=== PATIENT | male | born 1960 | race Caucasian/White ===

== ENCOUNTER 2016-04-04 09:17 | Outpatient (RCR) | payer OTHER | END 2016-04-10 | LOC: M OUTALCOH 09:17 | PROVIDERS: ATTEND Psychiatry & Neurology Psychiatry | DX: Z13.9 Encounter for screening, unspecified (principal); F10.20 Alcohol dependence, uncomplicated ==

== ENCOUNTER 2016-04-24 08:00 | Outpatient (RCR) | payer OTHER | END 2016-05-08 | LOC: M OUTALCOH 08:00 | PROVIDERS: ATTEND Psychiatry & Neurology Psychiatry | DX: F10.20 Alcohol dependence, uncomplicated (principal) ==

== ENCOUNTER 2016-06-05 08:00 | Outpatient (RCR) | payer OTHER | END 2016-06-08 | LOC: M OUTALCOH 08:00 | PROVIDERS: ATTEND Psychiatry & Neurology Psychiatry | DX: Z13.9 Encounter for screening, unspecified (principal); F10.20 Alcohol dependence, uncomplicated ==

== ENCOUNTER 2016-07-03 08:00 | Outpatient (RCR) | payer OTHER | END 2016-07-08 | LOC: M OUTALCOH 08:00 | PROVIDERS: ATTEND Psychiatry & Neurology Psychiatry | DX: F10.20 Alcohol dependence, uncomplicated (principal) ==

== ENCOUNTER 2016-08-07 08:30 | Outpatient (RCR) | payer OTHER | END 2016-08-08 | LOC: M OUTALCOH 08:30 | PROVIDERS: ATTEND Psychiatry & Neurology Psychiatry | DX: F10.20 Alcohol dependence, uncomplicated (principal) ==

== ENCOUNTER 2016-09-04 08:00 | Outpatient (RCR) | payer OTHER | END 2016-09-07 | LOC: M OUTALCOH 08:00 | PROVIDERS: ATTEND Psychiatry & Neurology Psychiatry | DX: F10.20 Alcohol dependence, uncomplicated (principal) ==

== ENCOUNTER → 2016-09-18 | Outpatient (REF) | payer OTHER ==
[2016-09-18 11:29] LABS: MEAN CORPUSCULAR HEMOGLOBIN 31.4 pg (27.0-33.0); MEAN CORPUSCULAR VOLUME 89.6 fl (80.0-96.0); RED CELL DISTRIBUTION WIDTH 13.1 % (11.5-14.5); WHITE BLOOD COUNT 4.6 K/mm3 (4.0-10.0)
[2016-09-18 12:03] LABS: ALBUMIN/GLOBULIN RATIO 1.25 (1.00-1.93); ALKALINE PHOSPHATASE 85 U/L (45-117); ALT/SGPT 25 U/L (12-78); ANION GAP 7 MEQ/L (8-16); AST/SGOT 15 U/L (15-37); BILIRUBIN,TOTAL 0.5 MG/DL (0.2-1.0); BLOOD UREA NITROGEN 13 MG/DL (7-18); CALCIUM LEVEL 8.9 MG/DL (8.5-10.1); CARBON DIOXIDE LEVEL 27 MEQ/L (21-32); CHLORIDE LEVEL 108 MEQ/L (98-107); CREATININE FOR GFR 1.19 MG/DL (0.70-1.30); GLOMERULAR FILTRATION RATE > 60.0 (>56); GLUCOSE, FASTING 99 MG/DL (70-105); POTASSIUM SERUM 4.2 MEQ/L (3.5-5.1); SODIUM LEVEL 142 MEQ/L (136-145); TOTAL PROTEIN 7.2 GM/DL (6.4-8.2)
[2016-09-18 12:58] LABS: VITAMIN B12 LEVEL 485 PG/ML (247-911)
== END ==
LOC: M SFHCPLAZ 08:55
PROVIDERS: ATTEND Nurse Practitioner Adult Health
DX: K21.9 Gastro-esophageal reflux disease without esophagitis (principal); Z12.5 Encounter for screening for malignant neoplasm of prostate; Z87.898 Personal history of other specified conditions
CPT/HCPCS: 36415; 80053; 82607; 84443; 85027; G0103

== ENCOUNTER 2016-10-04 14:00 | Outpatient (RCR) | payer OTHER | END 2016-10-08 | LOC: M OUTALCOH 14:00 | PROVIDERS: ATTEND Psychiatry & Neurology Psychiatry | DX: F10.20 Alcohol dependence, uncomplicated (principal) ==

== ENCOUNTER 2016-11-07 08:45 | Outpatient (RCR) | payer OTHER | END 2016-11-08 | LOC: M OUTALCOH 08:45 | PROVIDERS: ATTEND Psychiatry & Neurology Psychiatry | DX: F10.20 Alcohol dependence, uncomplicated (principal) ==

== ENCOUNTER 2016-12-07 08:00 | Outpatient (RCR) | payer OTHER | END 2016-12-08 | LOC: M OUTALCOH 08:00 | PROVIDERS: ATTEND Psychiatry & Neurology Psychiatry | DX: F10.20 Alcohol dependence, uncomplicated (principal) ==

== ENCOUNTER 2017-02-06 15:32 | Outpatient (RCR) | payer OTHER ==
[2017-02-15] MEDS ORDERED: OMEP20CA3 PO (14:31)
[2017-02-15] MEDS ORDERED: ACET-683 PO (14:31)
== END 2017-02-07 ==
LOC: M OUTALCOH 15:32
PROVIDERS: ATTEND Psychiatry & Neurology Psychiatry
DX: F10.20 Alcohol dependence, uncomplicated (principal)

== ENCOUNTER 2017-02-13 15:00 | Outpatient (RCR) | payer OTHER | END 2017-03-10 | LOC: M OUTALCOH 02-20 16:00 | DX: F10.20 Alcohol dependence, uncomplicated (principal) ==

== ENCOUNTER 2017-02-19 10:51 | Day surgery (SDC) | payer OTHER ==
[~2017-02-19] VITALS: Ht 177.8 cm; Wt 98.0 kg
[~2017-02-19 10:51] MED LIST: ACET-683 PO; OMEP20CA3 PO
[2017-02-19] MEDS ORDERED: NS 1,000 ML IV SCH (12:15)
[2017-02-19] MEDS ORDERED: PROPOFOL 200 MG/20 ML VIAL As Ordered ONE ×2 (12:40→12:42)
[2017-02-19] MEDS ORDERED: LIDOCAINE 2% INJ 100 MG/5 ML SDV (FOR ANES.) As Ordered ONE (12:40)
--- NOTE | 2017-02-19 12:44 | ROOR ---
Patient Name: James Ponce Procedure Date: 02/19/2017 12:29 PM Date of : 1960 Age: 56 Room: [facility] Gender: Male Note Status: Finalized Procedure: Upper GI endoscopy Indications: Heartburn Providers: Jerardo SCOTT MD Referring MD: Rashad Matute MD Requesting Provider: Medicines: Monitored Anesthesia Care Complications: No immediate complications. Procedure: Pre-Anesthesia Assessment: - The heart rate, respiratory rate, oxygen saturations, blood pressure, adequacy of pulmonary ventilation, and response to care were monitored throughout the procedure. The Endoscope was introduced through the mouth, and advanced to the second part of duodenum. The upper GI endoscopy was accomplished without difficulty. The patient tolerated the procedure well. Findings: The esophagus was normal. The stomach was normal. The examined duodenum was normal. Impression: - Normal esophagus. - Normal stomach. - Normal examined duodenum. - No specimens collected. Recommendation: - Observe patient's clinical course. - Follow an antireflux regimen. Jerardo Scott MD Jerardo SCOTT MD 02/19/2017 12:43:58 PM This report has been signed electronically. Number of Addenda: 0 Note Initiated On: 02/19/2017 12:29 PM Estimated Blood Loss: Estimated blood loss: none.
--- NOTE | 2017-02-19 13:16 | ROOR ---
Patient Name: James Ponce Procedure Date: 02/19/2017 12:30 PM Date of : 1960 Age: 56 Room: [facility] Gender: Male Note Status: Finalized Procedure: Colonoscopy Indications: Hematochezia, Rectal bleeding Providers: Jerardo SCOTT MD Referring MD: Rashad Matute MD Requesting Provider: Medicines: Monitored Anesthesia Care Complications: No immediate complications. Procedure: Pre-Anesthesia Assessment: - The heart rate, respiratory rate, oxygen saturations, blood pressure, adequacy of pulmonary ventilation, and response to care were monitored throughout the procedure. The Colonoscope was introduced through the anus and advanced to 3 cm into the ileum. The colonoscopy was performed without difficulty. The patient tolerated the procedure well. The quality of the bowel preparation was good. Findings: The digital rectal exam findings include palpable rectal mass. A frond-like/villous non-obstructing large mass was found in the distal rectum. The mass measured four cm in length. This was biopsied with a cold forceps for histology. The exam was otherwise normal throughout the examined colon. The terminal ileum appeared normal. Impression: - Palpable rectal mass found on digital rectal exam. - 3 cm soft villous mass in the distal rectum (within 1cm of dentate line/hemorrhoidal vessels). Biopsied to r/o malignancy. (I did not attempt to remove this lesion.) - The colon and examined portion of the ileum are otherwise normal. Recommendation: - Await pathology results. - Refer to a colo-rectal surgeon at appointment to be scheduled. Jerardo Scott MD Jerardo SCOTT MD 02/19/2017 1:16:20 PM This report has been signed electronically. Number of Addenda: 0 Note Initiated On: 02/19/2017 12:30 PM Estimated Blood Loss: Estimated blood loss: none.
[2017-02-19 13:53] VITALS: BP 140/80
== END 2017-02-19 14:10 | disposition home or self-care (01) ==
LOC: M OPP 10:51
PROVIDERS: ATTEND Internal Medicine Gastroenterology
DX: C18.9 Malignant neoplasm of colon, unspecified (principal); K62.89 Other specified diseases of anus and rectum; K62.5 Hemorrhage of anus and rectum; R12 Heartburn; K21.9 Gastro-esophageal reflux disease without esophagitis; Z79.899 Other long term (current) drug therapy; Z87.891 Personal history of nicotine dependence

== ENCOUNTER → 2017-03-08 | Outpatient (REF) | payer OTHER ==
[2017-03-08 12:49] LABS: MEAN CORPUSCULAR HEMOGLOBIN 29.8 pg (27.0-33.0); MEAN CORPUSCULAR HGB CONC 34.5 g/dl (32.0-36.5); MEAN CORPUSCULAR VOLUME 86.4 fl (80.0-96.0); PLATELET COUNT, AUTOMATED 187 10^3/uL (150-450); RED CELL DISTRIBUTION WIDTH 13.2 % (11.5-14.5); WHITE BLOOD COUNT 6.4 10^3/uL (4.0-10.0)
[2017-03-08 13:28] LABS: ALBUMIN 3.8 GM/DL (3.2-5.2); ALBUMIN/GLOBULIN RATIO 1.09 (1.00-1.93); ALKALINE PHOSPHATASE 86 U/L (45-117); ALT/SGPT 32 U/L (12-78); ANION GAP 8 MEQ/L (8-16); AST/SGOT 22 U/L (7-37); BILIRUBIN,TOTAL 0.5 MG/DL (0.2-1.0); BLOOD UREA NITROGEN 16 MG/DL (7-18); CALCIUM LEVEL 9.3 MG/DL (8.5-10.1); CARBON DIOXIDE LEVEL 27 MEQ/L (21-32); CHLORIDE LEVEL 105 MEQ/L (98-107); GLOMERULAR FILTRATION RATE > 60.0 (>56); GLUCOSE, FASTING 93 MG/DL (70-105); POTASSIUM SERUM 4.5 MEQ/L (3.5-5.1); SODIUM LEVEL 140 MEQ/L (136-145); TOTAL PROTEIN 7.3 GM/DL (6.4-8.2)
== END ==
LOC: M SFHCPLAZ 11:12
DX: C20 Malignant neoplasm of rectum (principal)
CPT/HCPCS: 36415

== ENCOUNTER → 2017-03-08 | Outpatient (REF) | payer OTHER ==
[2017-03-08 13:01] LABS: BASO # 0.1 10^3/uL (0.0-0.2); BASO % 0.8 % (0.0-1.0); EOS # 0.1 10^3/uL (0.0-0.50); EOS % 2.2 % (0.0-3.0); IMMATURE GRANULOCYTE % 0.2 % (0-0); LYMPH # 1.8 10^3/uL (1.5-4.5); LYMPH % 27.8 % (24.0-44.0); MEAN CORPUSCULAR HEMOGLOBIN 29.9 pg (27.0-33.0); MEAN CORPUSCULAR HGB CONC 34.7 g/dl (32.0-36.5); MEAN CORPUSCULAR VOLUME 86.1 fl (80.0-96.0); MONO # 0.6 10^3/uL (0.0-0.8); MONO % 9.2 % (0.0-5.0); NEUTROPHILS # 3.8 10^3/uL (1.8-7.7); NEUTROPHILS % 59.8 % (36.0-66.0); PLATELET COUNT, AUTOMATED 185 10^3/uL (150-450); RED CELL DISTRIBUTION WIDTH 13.2 % (11.5-14.5); WHITE BLOOD COUNT 6.4 10^3/uL (4.0-10.0)
[2017-03-08 13:24] LABS: CHLORIDE LEVEL 105 MEQ/L (98-107); POTASSIUM SERUM 4.5 MEQ/L (3.5-5.1); SODIUM LEVEL 141 MEQ/L (136-145)
[2017-03-08 13:47] LABS: ALBUMIN 3.8 GM/DL (3.2-5.2); ALBUMIN/GLOBULIN RATIO 1.12 (1.00-1.93); ALKALINE PHOSPHATASE 86 U/L (45-117); ALT/SGPT 33 U/L (12-78); ANION GAP 11 MEQ/L (8-16); AST/SGOT 20 U/L (7-37); BILIRUBIN,TOTAL 0.4 MG/DL (0.2-1.0); BLOOD UREA NITROGEN 17 MG/DL (7-18); CALCIUM LEVEL 9.1 MG/DL (8.5-10.1); CARBON DIOXIDE LEVEL 25 MEQ/L (21-32); GLOMERULAR FILTRATION RATE > 60.0 (>56); GLUCOSE, FASTING 91 MG/DL (70-105); TOTAL PROTEIN 7.2 GM/DL (6.4-8.2)
== END ==
LOC: M LABDRAWP 12:55
DX: C20 Malignant neoplasm of rectum (principal)

== ENCOUNTER 2017-03-29 11:08 | Outpatient (RCR) | payer OTHER | END 2017-04-10 | LOC: M OUTALCOH 11:08 | DX: F10.20 Alcohol dependence, uncomplicated (principal) ==

== ENCOUNTER → 2017-04-02 | Outpatient (CLI) | payer OTHER | LOC: M ONCR 09:11 | DX: C18.9 Malignant neoplasm of colon, unspecified (principal) | CPT/HCPCS: 99204 ==

== ENCOUNTER 2017-04-09 11:02 | Outpatient (RCR) | payer OTHER | END 2017-04-10 | LOC: M ONCR 11:02 | DX: C18.9 Malignant neoplasm of colon, unspecified (principal) | CPT/HCPCS: 77290 ==

== ENCOUNTER → 2017-04-09 | Outpatient (CLI) | payer OTHER ==
[2017-04-09 11:29] LABS: INR 1.04; PROTHROMBIN TIME 13.7 SECONDS (12.4-14.5)
[2017-04-09 11:30] LABS: INR 1.05; PARTIAL THROMBOPLASTIN TIME 29.7 SECONDS (26.8-37.9); PROTHROMBIN TIME 13.8 SECONDS (12.4-14.5)
== END ==
LOC: M RAD 10:32
DX: C18.9 Malignant neoplasm of colon, unspecified (principal)
CPT/HCPCS: 85610

== ENCOUNTER → 2017-04-10 | Outpatient (CLI) | payer OTHER ==
[~2017-04-10] MED LIST changes: -ACET-683 PO; +LIDOCAINE 2% MDV 20 ML VIAL As Ordered; -OMEP20CA3 PO
== END | disposition home or self-care (01) ==
LOC: M IRPRO 13:25
DX: C20 Malignant neoplasm of rectum (principal)
CPT/HCPCS: 36561

== ENCOUNTER → 2017-04-12 | Outpatient (CLI) | payer OTHER ==
[~2017-04-12] MED LIST changes: +LIDOCAINE 1% MDV 20ML VIAL As Ordered; -LIDOCAINE 2% MDV 20 ML VIAL As Ordered
== END ==
LOC: M RADPRO 09:04
DX: R22.2 Localized swelling, mass and lump, trunk (principal); Z79.899 Other long term (current) drug therapy; Z85.038 Personal history of other malignant neoplasm of large intestine
CPT/HCPCS: 62267

== ENCOUNTER 2017-04-15 12:29 | Outpatient (RCR) | payer OTHER | END 2017-05-08 | LOC: M ONCR 12:29 | DX: C20 Malignant neoplasm of rectum (principal) | CPT/HCPCS: 77307 ==

== ENCOUNTER 2017-05-02 10:13 | Outpatient (RCR) | payer OTHER | END 2017-05-08 | LOC: M OUTALCOH 10:13 | DX: F10.20 Alcohol dependence, uncomplicated (principal) ==

== ENCOUNTER 2017-05-09 11:43 | Outpatient (RCR) | payer OTHER | END 2017-06-08 | LOC: M ONCR 11:43 | DX: C20 Malignant neoplasm of rectum (principal) | CPT/HCPCS: 77336 ==

== ENCOUNTER → 2017-12-09 | Outpatient (REF) | payer OTHER ==
[2017-12-09 14:07] LABS: APPEARANCE, URINE TURBID (CLEAR); BACTERIA, URINE AUTO 3+ (NEGATIVE); BILIRUBIN, URINE AUTO NEGATIVE (NEGATIVE); BLOOD, URINE BLOOD 2+ (NEGATIVE); COLOR, URINE YELLOW (YELLOW); GLUCOSE, URINE (UA) AUTO NEGATIVE (NEGATIVE); KETONE, URINE AUTO NEGATIVE (NEGATIVE); LEUKOCYTE ESTERASE, URINE AUTO 3+ (NEGATIVE); MUCUS, URINE SMALL (NEGATIVE); NITRITE, URINE AUTO NEGATIVE (NEGATIVE); PROTEIN, URINE AUTO 2+ mg/dL (NEGATIVE); RBC, URINE AUTO 34 /HPF (0-3); SQUAMOUS EPITHELIAL CELL UR AU 1 /HPF (0-6); UROBILINOGEN, URINE AUTO 0.2 mg/dL (0.0-2.0); WBC, URINE AUTO TNTC /HPF (0-3)
== END ==
LOC: M SHH 13:41
DX: N39.9 Disorder of urinary system, unspecified (principal)
CPT/HCPCS: 81001

== ENCOUNTER → 2017-12-25 | Outpatient (REF) | payer OTHER ==
[2017-12-25 16:57] LABS: APPEARANCE, URINE TURBID (CLEAR); BACTERIA, URINE AUTO 2+ (NEGATIVE); BILIRUBIN, URINE AUTO NEGATIVE (NEGATIVE); BLOOD, URINE BLOOD 2+ (NEGATIVE); COLOR, URINE YELLOW (YELLOW); GLUCOSE, URINE (UA) AUTO NEGATIVE (NEGATIVE); KETONE, URINE AUTO NEGATIVE (NEGATIVE); LEUKOCYTE ESTERASE, URINE AUTO 3+ (NEGATIVE); MUCUS, URINE SMALL (NEGATIVE); NITRITE, URINE AUTO POSITIVE (NEGATIVE); PROTEIN, URINE AUTO 1+ mg/dL (NEGATIVE); RBC, URINE AUTO 45 /HPF (0-3); SPECIFIC GRAVITY URINE AUTO 1.009 (1.002-1.035); SQUAMOUS EPITHELIAL CELL UR AU 0 /HPF (0-6); UROBILINOGEN, URINE AUTO 0.2 mg/dL (0.0-2.0); WBC, URINE AUTO TNTC /HPF (0-3)
== END ==
LOC: M SHH 15:35
DX: C20 Malignant neoplasm of rectum (principal); T81.30XD Disruption of wound, unspecified, subsequent encounter
CPT/HCPCS: 81001

== ENCOUNTER → 2018-01-15 | Outpatient (CLI) | payer OTHER | LOC: M ONCR 12:57 | DX: C20 Malignant neoplasm of rectum (principal) | CPT/HCPCS: 99211 ==

== ENCOUNTER → 2018-09-03 | Outpatient (CLI) | payer OTHER ==
[~2018-09-03] MED LIST changes: +ACET-683 PO; +ALEV220C2 PO; +ALPR0.5T3 PO; +DIPH12.527 PO; +DOK100TA; +ENOX40IN3; +FLOM0.4C39; +GASTROGRAFIN SOLUTION 30ML (Q9963) As Ordered ONE; +ISOVUE-370 76% 100ML VIAL (Q9967) As Ordered ONE; -LIDOCAINE 1% MDV 20ML VIAL As Ordered; +NAPR220C14 PO; +OMEP20CA3 PO; +ONDA8TAB7 PO; +ONDA8TAB8 PO; +OXYC10TA12 PO; +PROC10TA4 PO; +SENN-85 PO; +SILD50TA GT; +SILV40CR EXT; +TRAM50TA2; +XELO150T PO; +XELO1TAB PO
--- NOTE | 2018-09-03 14:33 | REP ---
Clinical: Rectal cancer for restaging. Technique: Axial contrast enhanced images from the thoracic inlet to the upper abdomen with coronal and sagittal re-formations using 100 ml Isovue of 70 intravenous contrast material. Comparison: 03/01/2017 Findings: The bilateral lung mata are well-aerated and essentially clear. No focal consolidation, pulmonary parenchymal nodule or mass lesion is appreciated. No pleural effusion. No pneumothorax. Tracheobronchial tree is patent. No significant adenopathy. Mediastinum demonstrates relatively normal thoracic aorta, pulmonary vasculature, and heart/pericardium. Surrounding osseous structures are intact and normal. [id number]-I-Vnxf identified with tip in the SVC. There is a 3.3 cm mass in the left paraspinal region adjacent to the T7 neural foramen which is unchanged from prior examination. No further mass lesions are identified. Impression: 1. No acute mediastinal or pleuroparenchymal process. 2. No evidence for metastatic disease, consolidation, or effusion. 3. Stable soft tissue mass arising from the left T7 neural foramen region. Electronically Signed by James Garcia MD 09/03/2018 02:24 P
--- NOTE | 2018-09-03 14:38 | REP ---
Clinical: Rectal carcinoma for restaging. Technique: Axial contrast enhanced images from the lung bases to the pubic symphysis using oral (per protocol) and 100 ml Isovue 370 intravenous contrast material with coronal and sagittal re-formations. Comparison: 10/10/2017. Findings: Liver, spleen, atrophic pancreas, bilateral adrenal glands and kidneys are essentially normal/stable. Collapsed gallbladder with small gallstones noted. Evaluation of the enteric system demonstrates prior left hemicolectomy with ostomy via the left anterior abdominal wall and no evidence for bowel obstruction. Normal terminal ileum and appendix are identified in the right lower quadrant. Pelvis demonstrates normal bladder and age appropriate prostate/seminal vesicles. No abnormal fluid, adenopathy, or obvious mass/recurrence is appreciated within the pelvis and ischiorectal fossa. No ascites. No free air. No adenopathy. Abdominal aorta without aneurysm or dissection. Musculoskeletal structures demonstrate degenerative changes without focal osseous abnormality including chronic L5 spondylolysis without significant spondylolisthesis. Impression: 1. Evidence for prior left hemicolectomy to the level of the rectum with ostomy via the left anterior abdominal wall. No evidence for bowel obstruction, peristomal hernia or perforation. 2. No obvious metastatic disease or recurrence appreciated. No adenopathy. No ascites. 3. Cholelithiasis. Electronically Signed by James Garcia MD 09/03/2018 02:30 P
== END ==
LOC: M RAD 11:52
PROVIDERS: ATTEND Internal Medicine Medical Oncology
DX: K80.19 Calculus of gallbladder with other cholecystitis with obstruction (principal); M79.9 Soft tissue disorder, unspecified; C20 Malignant neoplasm of rectum; Z90.49 Acquired absence of other specified parts of digestive tract
CPT/HCPCS: 71260; 74177; Q9963; Q9967

== ENCOUNTER → 2018-09-30 | Outpatient (CLI) | payer OTHER ==
[~2018-09-30] MED LIST changes: -GASTROGRAFIN SOLUTION 30ML (Q9963) As Ordered ONE; -ISOVUE-370 76% 100ML VIAL (Q9967) As Ordered ONE; -OMEP20CA3 PO; +OMEP20CA4 PO
--- NOTE | 2018-09-30 12:49 | REP ---
Whole body PET CT scan for restaging of rectal carcinoma: Comparison is the CT of the abdomen and pelvis dated 09/03/2018. Whole body PET CT scanning is performed from skull base to the upper thighs. Neck and supraclavicular areas: There is artifactual uptake in the sublingual glands. There is no other uptake in the neck or supraclavicular areas. Chest: There are no hypermetabolic foci. Abdomen, pelvis and upper thighs: There is a hypermetabolic focus at the colostomy with a standard uptake value of 4.7. This may be postsurgical. There are no hepatic foci. No other hypermetabolic foci are identified. Impression: There is a hypermetabolic focus at the colostomy with a standard uptake value of 4.7. This may be postsurgical. No other hypermetabolic foci are identified. The study is performed with 4.49 mCi of F 18 FDG. Electronically Signed by Diogenes Christianson MD 09/30/2018 12:40 P
== END ==
LOC: M PLARAD 07:42
PROVIDERS: ATTEND Internal Medicine Medical Oncology
DX: C20 Malignant neoplasm of rectum (principal); Z92.21 Personal history of antineoplastic chemotherapy
CPT/HCPCS: 78815; A9552

== ENCOUNTER 2018-12-04 10:13 | Day surgery (SDC) | payer OTHER ==
[~2018-12-04] VITALS: Ht 172.7 cm; Wt 97.5 kg
[~2018-12-04 10:13] MED LIST changes: +NEUR300C PO
[2018-12-04] MEDS: NS 1,000 ML IV ONE (10:22)
[2018-12-04] MEDS ORDERED: PROPOFOL 500 MG/50 ML VIAL As Ordered ONE (10:53)
[2018-12-04] MEDS ORDERED: LIDOCAINE 2% INJ 100 MG/5 ML SDV (FOR ANES.) As Ordered ONE (10:53)
--- NOTE | 2018-12-04 11:18 | ROOR ---
Patient Name: James Ponce Procedure Date: 12/04/2018 10:49 AM Date of : 1960 Age: 58 Room: [facility] Gender: Male Note Status: Finalized Procedure: Colonoscopy Indications: Abnormal PET scan of the GI tract Providers: Valentin West Jr, MD Referring MD: Neeta MO NP Requesting Provider: Medicines: Propofol per Anesthesia Complications: No immediate complications. Procedure: Pre-Anesthesia Assessment: - Prior to the procedure, a History and Physical was performed, and patient medications and allergies were reviewed. The patient is competent. The risks and benefits of the procedure and the sedation options and risks were discussed with the patient. All questions were answered and informed consent was obtained. Patient identification and proposed procedure were verified by the physician and the nurse in the pre-procedure area and in the procedure room. Mental Status Examination: alert and oriented. Airway Examination: normal oropharyngeal airway and neck mobility. Respiratory Examination: clear to auscultation. CV Examination: normal. ASA Grade Assessment: II - A patient with mild systemic disease. After reviewing the risks and benefits, the patient was deemed in satisfactory condition to undergo the procedure. The anesthesia plan was to use moderate sedation / analgesia (conscious sedation). Immediately prior to administration of medications, the patient was re-assessed for adequacy to receive sedatives. The heart rate, respiratory rate, oxygen saturations, blood pressure, adequacy of pulmonary ventilation, and response to care were monitored throughout the procedure. The physical status of the patient was re-assessed after the procedure. The Colonoscope was introduced through the anus and advanced to the cecum, identified by appendiceal orifice and ileocecal valve. The colonoscopy was performed without difficulty. The patient tolerated the procedure well. The quality of the bowel preparation was adequate. Findings: The sigmoid colon, descending colon, transverse colon, ascending colon, cecum, appendiceal orifice, ileocecal valve and surgical stoma appeared normal. A diminutive polyp was found in the hepatic flexure. The polyp was removed with a cold snare. Resection and retrieval were complete. Impression: - The sigmoid colon, descending colon, transverse colon, ascending colon, cecum, appendiceal orifice, ileocecal valve and surgical stoma are normal. - One diminutive polyp at the hepatic flexure, removed with a cold snare. Resected and retrieved. Recommendation: - Repeat colonoscopy in 3 - 5 years for surveillance. Valentin West MD Valentin West Jr, MD 12/04/2018 11:18:39 AM Electronically signed by Valentin West Jr, MD Number of Addenda: 0 Note Initiated On: 12/04/2018 10:49 AM Estimated Blood Loss: Estimated blood loss: none.
[2018-12-04 11:30] VITALS: BP 179/84
== END 2018-12-04 11:55 | disposition home or self-care (01) ==
LOC: M OPP 10:13
PROVIDERS: ATTEND Surgery
DX: D12.3 Benign neoplasm of transverse colon (principal); R93.3 Abnormal findings on diagnostic imaging of other parts of digestive tract; Z79.899 Other long term (current) drug therapy; Z91.048 Other nonmedicinal substance allergy status; Z85.048 Personal history of other malignant neoplasm of rectum, rectosigmoid junction, and anus; Z92.3 Personal history of irradiation; Z92.21 Personal history of antineoplastic chemotherapy; Z87.891 Personal history of nicotine dependence

== ENCOUNTER 2019-02-11 13:42 | Emergency (ER) | payer OTHER ==
[~2019-02-11] VITALS: Ht 177.8 cm; Wt 100.0 kg
[~2019-02-11 13:42] MED LIST changes: +OMEP-172 PO; -OMEP20CA4 PO
[2019-02-11] MEDS ORDERED: ADACEL/BOOSTRIX VACCINE (DIPHTH/PERTUSS/ACELL/TETANUS)0.5ML SYR (90715) IM ONE (14:15)
[2019-02-11 14:23] VITALS: BP 142/65
--- NOTE | 2019-02-11 14:28 | REP ---
Clinical: Laceration. Technique: AP, lateral, bilateral oblique views of the left third digit. Findings: Soft tissue injury and laceration noted overlying the distal interphalangeal joint and distal phalanx. No foreign body. No acute fracture or dislocation. Impression: Soft tissue injury. No foreign body. Electronically Signed by James Garcia MD 02/11/2019 02:19 P
[2019-02-11] MEDS ORDERED: LIDOCAINE 1% MDV 20ML VIAL INFIL ONE (14:45)
== END 2019-02-11 15:09 | disposition home or self-care (01) ==
LOC: M ED 13:42
DX: S61.213A Laceration without foreign body of left middle finger without damage to nail, initial encounter (principal); W01.190A Fall on same level from slipping, tripping and stumbling with subsequent striking against furniture, initial encounter; Y92.89 Other specified places as the place of occurrence of the external cause; Y93.89 Activity, other specified; Y99.0 Civilian activity done for income or pay; Z91.048 Other nonmedicinal substance allergy status; Z79.899 Other long term (current) drug therapy

== ENCOUNTER → 2019-03-05 | Outpatient (CLI) | payer OTHER ==
[~2019-03-05] MED LIST changes: +GASTROGRAFIN SOLUTION 30ML (Q9963) As Ordered ONE
--- NOTE | 2019-03-05 12:57 | REP ---
Clinical: Rectal carcinoma. Restaging. Technique: At axial contrast enhanced images from the thoracic inlet to the upper abdomen with coronal and sagittal re-formations using 100 ml Isovue 370 intravenous contrast material. Comparison: 09/03/2018, at 03/01/2017 . Findings: 3.4 cm mass along the left paraspinous space at the T7 level is relatively stable through 03/01/2017. The bilateral lung mata are well-aerated and essentially clear. No focal pulmonary parenchymal consolidation, nodule or mass lesion is otherwise appreciated. No effusion. No pneumothorax. Tracheobronchial tree is patent. No obvious axillary, hilar, or mediastinal adenopathy. Thoracic aorta and pulmonary vasculature grossly normal. No cardiomegaly. No pericardial effusion. Osseous structures are intact. Lkluws-O-Krrn identified with tip in the SVC. Impression: 1. Stable 3.4 cm mass along the left paraspinous region at the T7 level unchanged from prior examinations. 2. No further mediastinal or pleuroparenchymal process appreciated. Electronically Signed by James Garcia MD 03/05/2019 12:49 P
--- NOTE | 2019-03-05 13:05 | REP ---
Clinical: History of rectal carcinoma. Restaging. Technique: Axial images from the lung bases to the pubic symphysis using oral contrast material. Coronal and sagittal re-formations obtained. Comparison: 09/03/2018. Findings: Liver, spleen, atrophic pancreas, bilateral adrenal glands and kidneys are relatively normal / stable. Cholelithiasis noted without acute cholecystitis. Evidence for prior complete left hemicolectomy with colostomy via the left anterior abdominal wall including stable fat containing peristomal hernia. There is no evidence for bowel obstruction. Stable soft tissue postsurgical changes in the perirectal postsurgical bed. No obvious definite mass lesion, metastatic focus or recurrence identified. Pelvis demonstrates normal bladder and age appropriate prostate/seminal vesicles. No ascites. No free air. No obvious adenopathy. Abdominal aorta demonstrates atherosclerotic changes without aneurysm. Musculoskeletal structures demonstrate chronic stable and age-related changes without acute focal abnormality. Impression: 1. Postsurgical changes including fat containing peristomal hernia at the ostomy. 2. No evidence for recurrence or metastatic disease appreciated. 3. Cholelithiasis. Electronically Signed by James Garcia MD 03/05/2019 12:57 P
== END ==
LOC: M RAD 10:56
PROVIDERS: ATTEND Internal Medicine Medical Oncology
DX: C20 Malignant neoplasm of rectum (principal); M79.9 Soft tissue disorder, unspecified; K80.20 Calculus of gallbladder without cholecystitis without obstruction; Z90.49 Acquired absence of other specified parts of digestive tract; K43.5 Parastomal hernia without obstruction or gangrene
CPT/HCPCS: 71250; 74176; Q9963

== ENCOUNTER → 2019-07-23 | Outpatient (CLI) | payer OTHER ==
[~2019-07-23] MED LIST changes: -GASTROGRAFIN SOLUTION 30ML (Q9963) As Ordered ONE; -OMEP-172 PO; +OMEP1CAP73 PO; +ONDA8TAB10 PO; -ONDA8TAB7 PO; +PREG25CA PO
[2019-07-23 15:55] LABS: BASO # 0.1 10^3/uL (0.0-0.2); BASO % 0.9 % (0.0-1.0); EOS # 0.2 10^3/uL (0.0-0.5); HEMATOCRIT 40.7 % (42.0-52.0); HEMOGLOBIN 14.2 g/dl (13.5-17.5); LYMPH # 1.1 10^3/uL (1.5-5.0); LYMPH % 19.7 % (24.0-44.0); MEAN CORPUSCULAR HEMOGLOBIN 31.4 pg (27.0-33.0); MEAN CORPUSCULAR HGB CONC 34.9 g/dl (32.0-36.5); MONO # 0.6 10^3/uL (0.0-0.8); MONO % 10.5 % (0.0-5.0); NEUTROPHILS # 3.7 10^3/uL (1.5-8.5); NEUTROPHILS % 65.7 % (36.0-66.0); PLATELET COUNT, AUTOMATED 161 10^3/uL (150-450); RED BLOOD COUNT 4.52 10^6/uL (4.30-6.10); WHITE BLOOD COUNT 5.6 10^3/uL (4.0-10.0)
[2019-07-23 16:23] LABS: ALBUMIN 3.7 GM/DL (3.2-5.2); ALT/SGPT 23 U/L (12-78); BILIRUBIN,TOTAL 0.3 MG/DL (0.2-1.0); BLOOD UREA NITROGEN 18 MG/DL (7-18); CALCIUM LEVEL 8.6 MG/DL (8.5-10.1); CARBON DIOXIDE LEVEL 26 MEQ/L (21-32); CHLORIDE LEVEL 107 MEQ/L (98-107); CREATININE FOR GFR 1.28 MG/DL (0.70-1.30); GLOMERULAR FILTRATION RATE > 60.0 (>56); GLUCOSE, FASTING 102 MG/DL (70-100); POTASSIUM SERUM 4.2 MEQ/L (3.5-5.1); SODIUM LEVEL 140 MEQ/L (136-145); TOTAL PROTEIN 6.6 GM/DL (6.4-8.2)
== END ==
LOC: M LAB 14:35
PROVIDERS: ATTEND Internal Medicine Medical Oncology
DX: C20 Malignant neoplasm of rectum (principal)

== ENCOUNTER → 2019-08-18 | Outpatient (CLI) | payer OTHER ==
[~2019-08-18] MED LIST changes: +GASTROGRAFIN SOLUTION 30ML (Q9963) As Ordered ONE; +ISOVUE-370 76% 100ML VIAL As Ordered ONE; +PREG50CA2 PO
--- NOTE | 2019-08-20 16:27 | REP ---
Clinical: Stage III colon cancer. Technique: Axial contrast enhanced images from the thoracic inlet to the upper abdomen with coronal and sagittal re-formations (followed by CT of the abdomen and pelvis) using 100 ml Isovue 370 intravenous contrast material. Comparison: 03/05/2019. Findings: The bilateral lung mata are well-aerated and clear. No consolidation, significant nodule, or mass lesion is appreciated. No pleural effusion or pneumothorax. Tracheobronchial tree is patent. No obvious axillary, hilar, or mediastinal adenopathy noted. Atherosclerotic changes to the thoracic aorta and coronary arteries noted without aortic aneurysm or dissection. No cardiomegaly or pericardial effusion. Yexxqf-L-[id number] identified with tip extending to the SVC. 3.4 cm lobulated mass in the left paraspinous soft tissues at the T7 level remains unchanged. Musculoskeletal structures are are otherwise intact and without acute osseous abnormality. Limited upper abdomen demonstrates normal bilateral adrenal glands. Impression: 1. No acute mediastinal or pleuroparenchymal process. 2. Stable 3.4 cm lobulated mass along the left paraspinous soft tissues at the T7 level. 3. No new acute evidence for metastatic disease. Electronically Signed by James Garcia MD 08/20/2019 04:18 P
--- NOTE | 2019-08-20 16:38 | REP ---
Clinical: Stage III colon cancer. Technique: Axial contrast enhanced images from the lung bases to the pubic symphysis using oral (per protocol) and 100 ml Isovue 370 intravenous contrast material with coronal and sagittal re-formations. Comparison: 03/05/2019. Findings: Fatty infiltration to the liver noted without focal hepatic lesion or evidence for hepatic metastatic disease. Spleen, atrophic pancreas, bilateral adrenal glands and kidneys are essentially normal/stable. Cholelithiasis noted without acute cholecystitis. Evidence for prior left hemicolectomy ostomy via the left anterior abdominal wall with fat containing parastomal hernia. There is no evidence for bowel obstruction or acute enteric inflammatory process. No obvious focal recurrence or metastatic disease identified. No ascites. No obvious adenopathy. Pelvis demonstrates mild bladder wall thickening which is nonspecific. Prostate gland is age-appropriate. Atherosclerotic changes to the aorta and vasculature noted without aneurysm or dissection. Musculoskeletal structures demonstrate degenerative changes primarily involving the lumbosacral spine without focal acute osseous abnormality. Impression: 1. Hepatic steatosis. 2. Cholelithiasis. 3. Postsurgical changes including left hemicolectomy and colostomy with fat containing parastomal hernia. 4. No evidence for recurrent or metastatic disease. Electronically Signed by James Garcia MD 08/20/2019 04:30 P
== END ==
LOC: M RAD 10:38
PROVIDERS: ATTEND Internal Medicine Medical Oncology
DX: C18.9 Malignant neoplasm of colon, unspecified (principal)
CPT/HCPCS: 71260; 74177; Q9963; Q9967

== ENCOUNTER 2019-10-16 10:35 | Day surgery (SDC) | payer OTHER ==
[~2019-10-16] VITALS: Ht 177.8 cm; Wt 99.8 kg
[~2019-10-16 10:35] MED LIST changes: +ALEV220T22 PO; +ERTAPENEM 1GM VIAL(INVanz) (J1335 PER 500MG) As Ordered ONE; -GASTROGRAFIN SOLUTION 30ML (Q9963) As Ordered ONE; +IBUP-1022 PO; -ISOVUE-370 76% 100ML VIAL As Ordered ONE
[2019-10-16] MEDS ORDERED: ROCURONIUM BROMIDE 50 MG/5 ML VIAL As Ordered ONE (11:17)
[2019-10-16] MEDS ORDERED: ONDANSETRON 4MG/2ML VIAL As Ordered ONE (11:17)
[2019-10-16] MEDS ORDERED: fentaNYL 100 MCG/2 ML INJECTION (J3010) As Ordered ONE ×2 (11:17→13:19)
[2019-10-16] MEDS ORDERED: propofoL 200 MG/20 ML VIAL As Ordered ONE (11:17)
[2019-10-16] MEDS ORDERED: LIDOCAINE 2% 100MG/5ML SDV (FOR ANES.) As Ordered ONE (11:17)
[2019-10-16] MEDS ORDERED: MIDAZOLAM INJ 2MG/2ML VIAL (J2250 PER 1MG) As Ordered ONE (11:17)
[2019-10-16] MEDS ORDERED: METOCLOPRAMIDE INJ 10MG/2ML VIAL (J2765 PER 1) As Ordered ONE (11:17)
[2019-10-16] MEDS ORDERED: BUPIVACAINE/EPIN 0.25% 30 ML VIAL As Ordered ONE (11:39)
[2019-10-16] MEDS ORDERED: BUPIVACAINE LIPOSOME/PF 1.3% 20ML VIAL (13.3MG/ML)(EXPAREL)(C9290 PER1MG) As Ordered ONE (11:39)
[2019-10-16] MEDS ORDERED: BUPIVACAINE HCL 0.25% 10ML VIAL As Ordered ONE (11:39)
[2019-10-16] MEDS ORDERED: SUGAMMADEX SODIUM 500 MG/5 ML VIAL (BRIDION) As Ordered ONE (14:14)
[2019-10-16] MEDS ORDERED: HYDROMORPHONE HCL 0.5 MG/ 0.5 ML SYRINGE (J1170 PER 1) As Ordered ONE (14:22)
[2019-10-16] MEDS ORDERED: oxyCODONE 5MG TAB As Ordered ONE (14:23)
--- NOTE | 2020-01-12 15:32 | RO ---
DATE OF OPERATION: 10/16/2019 PREOPERATIVE DIAGNOSIS: Parastomal hernia. POSTOPERATIVE DIAGNOSIS: Parastomal hernia. PROCEDURE: Roboticassisted laparoscopic parastomal (incisional) hernia repair with Parietex mesh. SURGEON: Valentin West MD TRANSMISSION SYSTEMS OPERATOR: Peggy Panchal (provided retraction, exposure, assistance with mesh placement and abdominal wall closure). ANESTHESIA: General endotracheal anesthesia. EBL: Minimal. FLUIDS: Crystalloid. BRIEF PROCEDURE SUMMARY: The patient was brought to the operating room, was given general anesthesia. After adequate anesthesia and preoperative antibiotics were given the patient was prepped and draped in usual sterile fashion. The patient had a parastomal hernia around a left-sided almost left midabdominal ostomy site and had omentum appreciated on this preoperatively and did not have a significant amount of redundant colon although he states that the ostomy itself protruded quite significantly. In any case, the right subcostal incision was made with skin knife; blunt dissection was carried down to fascia. Fascia was entered with Veress needle, insufflated to 15 mm of pressure. Dilating 8 mm trocar was placed and under direct visualization a second 8 mm trocar was placed in the mid abdomen on the right-hand side and some adhesions were taken down with sharp dissection. After this was performed a third trocar was placed on this side. The robot was docked and with the patient in the left lateral decubitus position slightly reverse Trendelenburg position the adhesions were taken down with monopolar cut scissors. Most of this was adhesions up against the anterior abdominal wall and this was taken down nicely. Some bowel was not tightly adherent fortunately and was able to be retracted and removed at this point from the midline incision. Once this was taken down nicely the omentum came out of the peristomal hernia site with some gentle manipulation but there were still some attachments that were within the hernia sac that I did need to transect using electrocautery and monopolar cut scissors. Once this was performed then the obvious fascial defect that was present in the parastomal area was visualized and closed in transverse manner up to the colon wall using Stratafix. I closed mostly on the lateral aspect medial and then also some medial aspect as well but not as much to decrease the overall size of the fascial defect. Once this was closed a Parietex 12 cm round was then placed into the abdominal cavity. There was a small hole that I placed in the middle as well as keyhole type of incision in this and this was brought up against abdominal wall, sutured in place with 2-0 V-Loc circumferentially. The tails of the opening were sutured together using 2-0 V-Loc as well. This went up nicely against this area and the abdomen was decompressed at this time. No bleeding, no bowel injury was seen and overall the area where all the dissection was performed was all intact, no evidence of additional hernia appreciated. All trocars were removed under direct visualization. 4-0 Vicryl was used to close all skin incisions. Steri-Strips and dry, sterile dressing were applied. The patient was awakened, extubated and brought to the recovery room awake, alert and hemodynamically stable. Sponge and needle counts correct x2. MTDD
== END 2019-10-16 17:10 | disposition home or self-care (01) ==
LOC: M SDC 10:35
PROVIDERS: ATTEND Surgery
DX: K43.5 Parastomal hernia without obstruction or gangrene (principal); K21.9 Gastro-esophageal reflux disease without esophagitis; I10 Essential (primary) hypertension; Z87.891 Personal history of nicotine dependence; G62.0 Drug-induced polyneuropathy; Z85.09 Personal history of malignant neoplasm of other digestive organs; Z92.21 Personal history of antineoplastic chemotherapy; Z92.3 Personal history of irradiation; Z79.899 Other long term (current) drug therapy
CPT/HCPCS: 49654; C1781; C9290; J1170; J1335; J2250; J2405; J2765; J3010; S2900

== ENCOUNTER → 2020-04-15 | Outpatient (CLI) | payer OTHER ==
[~2020-04-15] MED LIST changes: -DOK100TA; +DOK100TA2; -ERTAPENEM 1GM VIAL(INVanz) (J1335 PER 500MG) As Ordered ONE; +GASTROGRAFIN SOLUTION 30ML (Q9963) As Ordered ONE; +ISOVUE-370 76% 100ML VIAL As Ordered ONE; +MELO15TA28 PO; +OMEP-221 PO; +PREG50CA PO
--- NOTE | 2020-04-15 09:41 | REP ---
INDICATION: RECTAL CANCER COMPARISON: 08/18/2019 TECHNIQUE: Axial contrast enhanced images from the thoracic inlet to the upper abdomen with 100 ml Isovue 370 intravenous contrast material followed by CT of the abdomen and pelvis with coronal and sagittal reformations.. This CT examination was performed using the following dose reduction techniques: Automated exposure control, adjustment of mA and/or kv according to the patient's size, and use of iterative reconstruction technique. FINDINGS: Scattered bilateral semi-solid enhancing nodules are identified measuring up to 15 mm along with solid 9 mm nodule in the right lower lobe which represent new findings as compared to prior examination and most compatible with metastatic disease. No effusion. No pneumothorax. Tracheobronchial tree is patent. Nonspecific mediastinal lymph nodes are identified without marked adenopathy. Thoracic aorta, pulmonary vasculature, and heart/pericardium are stable. A left paraspinal solid mass along the left aspect of T7 is unchanged. IMPRESSION: Scattered semi-solid enhancing nodules up to 15 mm and 9 mm right lower lobe solid nodule represent new findings and consistent with metastatic disease unless proven otherwise. Solid stable lobulated mass in the left paraspinal region adjacent to the T7 vertebral body. <Electronically signed by James Garcia > 04/15/20 [id number]
--- NOTE | 2020-04-17 04:11 | REP ---
INDICATION: RECTAL CANCER. COMPARISON: 08/18/2019 TECHNIQUE: Axial contrast-enhanced images from the lung bases to the pubic symphysis using 100 cc Isovue 370 intravenous contrast material. Coronal and sagittal reformations obtained along with delayed images of the abdomen. This CT examination was performed using the following dose reduction techniques: Automated exposure control, adjustment of mA and/or kv according to the patient's size, and the use of iterative reconstruction technique. FINDINGS: Liver demonstrates mild hepatosteatosis without focal hepatic lesion. Spleen, pancreas, bilateral adrenal glands and kidneys are normal. Cholelithiasis noted without acute cholecystitis. Patient is status post left hemicolectomy with colostomy via the left anterior abdominal wall. Fat containing peristomal hernia again noted. There is no evidence for bowel obstruction or acute inflammatory process. Colonic diverticulosis noted. Normal terminal ileum and appendix identified. Postsurgical changes in the rectal fossa are similar to prior examination. No obvious recurrence or metastatic disease noted. Pelvis demonstrates normal bladder and age-appropriate prostate/seminal vesicles. No ascites. No free air. No intraperitoneal or retroperitoneal adenopathy. Abdominal aorta and vasculature appear normal. Musculoskeletal structures are intact and without acute osseous abnormality. IMPRESSION: 1. Postsurgical changes related to rectal cancer including left hemicolectomy, colostomy and fat containing peristomal hernia unchanged from prior examination. No evidence for recurrence or metastatic disease appreciated. 2. Hepatosteatosis unchanged. 3. Cholelithiasis. 4. No ascites, focal inflammatory stranding, or adenopathy. <Electronically signed by James Garcia > 04/17/20 [id number]
== END ==
LOC: M RAD 07:16
PROVIDERS: ATTEND Internal Medicine Hematology & Oncology
DX: R91.8 Other nonspecific abnormal finding of lung field (principal); C20 Malignant neoplasm of rectum
CPT/HCPCS: 71260; 74177; J1642; Q9963; Q9967

== ENCOUNTER → 2020-05-06 | Outpatient (CLI) | payer OTHER ==
[~2020-05-06] MED LIST changes: -GASTROGRAFIN SOLUTION 30ML (Q9963) As Ordered ONE; -ISOVUE-370 76% 100ML VIAL As Ordered ONE; +LIDOCAINE 1% MDV 20ML VIAL As Ordered ONE; +LYRI150C PO
[2020-05-06 09:21] VITALS: BP 191/90
--- NOTE | 2020-05-06 10:30 | REP ---
INDICATION: RT LUNG NODULE. CT study of the chest from April 15, 2020 showed new nodules in the right upper lobe and right lower lobe. The patient was referred for CT-guided needle biopsy. Is COMPARISON: Comparison CT study April 15, 2020. Comparison CT is also reviewed from August 18, 2019.. TECHNIQUE: Patient was interviewed and informed consent for the biopsy was a obtained by KISHA Phipps. Patient was placed on the CT table and a preliminary targeting CT acquisition was performed. At my direction, a whole lung noncontrast chest CT study was performed as well. FINDINGS: The initial targeting CT imaging study demonstrated that the potential target nodules in the right upper lobe and right lower lobe are both regressed compared to the April 15, 2020 CT study. Accordingly, a whole lung chest CT study acquisition was performed. Repeat chest CT images confirm the presence of significant regression in both of the potential targets. The ground-glass opacity appears less solid and improved in the right upper lobe. The solid nodule in the right lower lobe is similarly smaller and less well-defined, 5 mm in diameter today compared to 8 mm April 15, 2020. No new or other pulmonary nodule or mass lesion has developed. No pleural or pericardial effusion is seen. No hilar or mediastinal mass or adenopathy is observed. Right-sided Tsmvyu-V-Gpsn catheter is again noted. Normal adrenal glands. Cholelithiasis is noted in the upper abdomen. Extensive fatty involution of the pancreas is observed. These findings are unchanged. Accordingly, we deferred the CT needle biopsy procedure. IMPRESSION: The 2 recently identified new nodules in the right upper lobe and right lower lobe have both shown significant regression in the short interval since the April 15, 2020 study suggesting an inflammatory etiology. The planned CT guided needle biopsy was deferred. <Electronically signed by Cj Vale > 05/06/20 1025
== END ==
LOC: M IRPRO 07:45
PROVIDERS: ATTEND Specialist
DX: R91.8 Other nonspecific abnormal finding of lung field (principal)

== ENCOUNTER → 2020-08-30 | Outpatient (CLI) | payer OTHER ==
[~2020-08-30] MED LIST changes: -LIDOCAINE 1% MDV 20ML VIAL As Ordered ONE
--- NOTE | 2020-08-30 09:02 | REP ---
INDICATION: PAIN. COMPARISON: Right knee 03/02/2010. TECHNIQUE: AP standing view, lateral and sunrise views bilateral knees. FINDINGS: There is no acute fracture or dislocation. There is severe medial joint space narrowing on the left with subchondral sclerosis and mild to moderate spurring. There is mild spurring of the superior and inferior poles of the patella as well as the lateral patellar facet. There is a small joint effusion. On the right there is moderate medial joint space narrowing with subchondral sclerosis and mild to moderate diffuse spurring. There is moderate spurring of the superior pole of the patella and lateral patellar facet, with mild spurring of the medial patellar facet. There is mild patellofemoral compartment narrowing with subchondral sclerosis. There does not appear to be a significant joint effusion radiographically. IMPRESSION: Bilateral degenerative changes as discussed in detail above. <Electronically signed by Diogenes Levine > 08/30/20 [id number]
== END ==
LOC: M SOG 08:18
PROVIDERS: ATTEND Orthopaedic Surgery Adult Reconstructive Orthopaedic Surgery
DX: M25.562 Pain in left knee (principal); M25.561 Pain in right knee

== ENCOUNTER → 2020-08-31 | Outpatient (REF) | payer OTHER ==
[2020-08-31 10:58] LABS: HEMATOCRIT 42.1 % (42.0-52.0); HEMOGLOBIN 14.2 g/dl (13.5-17.5); MEAN CORPUSCULAR HEMOGLOBIN 30.5 pg (27.0-33.0); MEAN CORPUSCULAR HGB CONC 33.7 g/dl (32.0-36.5); MEAN CORPUSCULAR VOLUME 90.3 fl (80.0-96.0); PLATELET COUNT, AUTOMATED 175 10^3/uL (150-450); RED BLOOD COUNT 4.66 10^6/uL (4.30-6.10); WHITE BLOOD COUNT 11.1 10^3/uL (4.0-10.0)
[2020-08-31 11:41] LABS: BILIRUBIN,TOTAL 0.5 MG/DL (0.2-1.0); CALCIUM LEVEL 8.7 MG/DL (8.5-10.1); CREATININE FOR GFR 1.49 MG/DL (0.70-1.30); GLOMERULAR FILTRATION RATE 51.4 (>56); POTASSIUM SERUM 4.4 MEQ/L (3.5-5.1); THYROID STIMULATING HORMONE 1.43 uIU/ML (0.358-3.740); TOTAL PROTEIN 7.3 GM/DL (6.4-8.2)
== END ==
LOC: M SFHCPLAZ 08:05
PROVIDERS: ATTEND Nurse Practitioner Adult Health
DX: C20 Malignant neoplasm of rectum (principal); Z12.5 Encounter for screening for malignant neoplasm of prostate; Z87.898 Personal history of other specified conditions; I10 Essential (primary) hypertension

== ENCOUNTER → 2021-03-06 | Outpatient (CLI) | payer OTHER ==
[~2021-03-06] MED LIST changes: +GASTROGRAFIN SOLUTION 30ML (Q9963) As Ordered ONE; +ISOVUE-370 76% 100ML VIAL As Ordered ONE; -OMEP-221 PO; +OMEP40CA5 PO; +ONDA-84 PO; -ONDA8TAB10 PO; -PROC10TA4 PO; +PROC10TA5 PO; +VALS160T2
== END ==
LOC: M RAD 12:34
PROVIDERS: ATTEND Specialist
DX: C18.9 Malignant neoplasm of colon, unspecified (principal)
CPT/HCPCS: 71260; 74177; Q9963; Q9967

== ENCOUNTER → 2022-02-12 | Outpatient (REF) | payer OTHER ==
[~2022-02-12] MED LIST changes: -GASTROGRAFIN SOLUTION 30ML (Q9963) As Ordered ONE; -ISOVUE-370 76% 100ML VIAL As Ordered ONE
[2022-02-12 09:29] LABS: HEMOGLOBIN A1c 5.7 % (4.0-6.0)
[2022-02-12 11:22] LABS: TOTAL PROTEIN 6.7 GM/DL (6.4-8.2); VITAMIN B12 LEVEL 537 PG/ML (211-911)
[2022-02-12 11:27] LABS: RHEUMATOID FACTOR QUANT 4.1 IU/ML (<14)
[2022-02-12 22:28] LABS: FOLATE > 24.0 NG/ML (>5.4)
== END ==
LOC: M LAB REF 08:54
PROVIDERS: ATTEND Psychiatry & Neurology Neurology
DX: E55.9 Vitamin D deficiency, unspecified (principal); E11.9 Type 2 diabetes mellitus without complications; G62.9 Polyneuropathy, unspecified; E53.8 Deficiency of other specified B group vitamins

== ENCOUNTER → 2022-03-28 | Outpatient (CLI) | payer OTHER ==
[~2022-03-28] MED LIST changes: +GASTROGRAFIN SOLUTION 30ML As Ordered ONE; +ISOVUE-370 76% 100ML VIAL As Ordered ONE
== END ==
LOC: M RAD 07:18
PROVIDERS: ATTEND Nurse Practitioner
DX: C18.9 Malignant neoplasm of colon, unspecified (principal)

== ENCOUNTER → 2022-05-03 | Outpatient (REF) | payer OTHER, MEDICAID ==
[~2022-05-03] MED LIST changes: +AMIT50TA; -GASTROGRAFIN SOLUTION 30ML As Ordered ONE; -ISOVUE-370 76% 100ML VIAL As Ordered ONE; +PREG100C
== END ==
LOC: M SFHCDERM 17:02
PROVIDERS: ATTEND Nurse Practitioner Family
DX: D48.9 Neoplasm of uncertain behavior, unspecified (principal)

== ENCOUNTER 2022-05-08 01:56 | Emergency (ER) | payer MEDICAID, OTHER ==
[2022-05-08] MEDS ORDERED: NS 1,000 ML IV ONE (02:05)
[2022-05-08 02:32] LABS: BASO % 0.8 % (0.0-1.0); EOS # 0.1 10^3/uL (0.0-0.5); EOS % 2.7 % (0.0-3.0); HEMATOCRIT 43.2 % (42.0-52.0); HEMOGLOBIN 14.7 g/dl (13.5-17.5); LYMPH # 1.6 10^3/uL (1.5-5.0); LYMPH % 33.1 % (24.0-44.0); MEAN CORPUSCULAR VOLUME 91.1 fl (80.0-96.0); MONO # 0.6 10^3/uL (0.0-0.8); MONO % 12.4 % (2.0-8.0); NEUTROPHILS # 2.4 10^3/uL (1.5-8.5); NEUTROPHILS % 50.6 % (36.0-66.0); PLATELET COUNT, AUTOMATED 162 10^3/uL (150-450); RED BLOOD COUNT 4.74 10^6/uL (4.30-6.10); WHITE BLOOD COUNT 4.8 10^3/uL (4.0-10.0)
[2022-05-08 02:54] LABS: ACETAMINOPHEN LEVEL < 2.0 UG/ML (10.0-20.0)
[2022-05-08 02:55] LABS: SALICYLATE LEVEL < 3.0 MG/DL (<30)
[2022-05-08 03:08] LABS: ALBUMIN 3.8 G/DL (3.2-5.2); ALKALINE PHOSPHATASE 105 U/L (46-116); ALT/SGPT 26 U/L (7.0-40); AST/SGOT 30 U/L (<34); BILIRUBIN,DIRECT 0.1 MG/DL (<0.4); BILIRUBIN,TOTAL 0.3 MG/DL (0.3-1.2); BLOOD UREA NITROGEN 15 MG/DL (9-23); CALCIUM LEVEL 8.3 MG/DL (8.3-10.6); CARBON DIOXIDE LEVEL 23 MMOL/L (20-31); CHLORIDE LEVEL 101 MMOL/L (98-107); ETHYL ALCOHOL (ETHANOL) 0.328 % (0.000-0.010); GLOMERULAR FILTRATION RATE > 60.0 (>49); GLUCOSE, FASTING 127 MG/DL (74-106); POTASSIUM SERUM 3.7 MMOL/L (3.5-5.1); SODIUM LEVEL 134 MMOL/L (136-145); THYROID STIMULATING HORMONE 5.106 uIU/ML (0.55-4.78)
[2022-05-08 03:45] LABS: TOTAL PROTEIN 7.2 G/DL (5.7-8.2)
[2022-05-08 07:23] VITALS: BP 145/83
== END 2022-05-08 07:20 | disposition home or self-care (01) ==
LOC: M ED 01:56
DX: F10.129 Alcohol abuse with intoxication, unspecified (principal); K21.9 Gastro-esophageal reflux disease without esophagitis; W01.198A Fall on same level from slipping, tripping and stumbling with subsequent striking against other object, initial encounter; I10 Essential (primary) hypertension; F10.10 Alcohol abuse, uncomplicated; Y92.511 Restaurant or cafe as the place of occurrence of the external cause; Z91.048 Other nonmedicinal substance allergy status; Z79.83 Long term (current) use of bisphosphonates; Z79.52 Long term (current) use of systemic steroids; Z79.899 Other long term (current) drug therapy

== ENCOUNTER → 2022-05-17 | Outpatient (CLI) | payer OTHER | LOC: M SOG 07:50 | PROVIDERS: ATTEND Orthopaedic Surgery | DX: Z53.9 Procedure and treatment not carried out, unspecified reason (principal) ==

== ENCOUNTER → 2022-06-13 | Outpatient (CLI) | payer OTHER | LOC: M SOG 07:55 | PROVIDERS: ATTEND Orthopaedic Surgery | DX: M19.071 Primary osteoarthritis, right ankle and foot (principal) ==

== ENCOUNTER → 2022-11-01 | Outpatient (CLI) | payer OTHER | LOC: M RAD 07:02 | PROVIDERS: ATTEND Physician Assistant | DX: M79.671 Pain in right foot (principal); R20.9 Unspecified disturbances of skin sensation ==

== ENCOUNTER → 2024-07-16 | Outpatient (CLI) | payer OTHER ==
[~2024-07-16] MED LIST changes: -FLOM0.4C39; +ONDA-284 PO; -ONDA8TAB8 PO; -PREG100C; +PREG100C2; -PREG25CA PO; +PREG25CA63 PO; -PREG50CA PO; -PREG50CA2 PO; +PREG50CA3 PO; +PREG50CA87 PO; +TAMS-18
[2024-07-16 15:52] LABS: HEMATOCRIT 47.3 % (42.0-52.0); HEMOGLOBIN 15.8 g/dl (13.5-17.5); MEAN CORPUSCULAR HEMOGLOBIN 29.7 pg (27.0-33.0); MEAN CORPUSCULAR HGB CONC 33.4 g/dl (32.0-36.5); MEAN CORPUSCULAR VOLUME 88.9 fl (80.0-96.0); PLATELET COUNT, AUTOMATED 162 10^3/uL (150-450); RED BLOOD COUNT 5.32 10^6/uL (4.30-6.10); WHITE BLOOD COUNT 5.3 10^3/uL (4.0-10.0)
[2024-07-16 16:00] LABS: ALBUMIN 3.6 G/DL (3.2-5.2); BILIRUBIN,TOTAL 0.4 MG/DL (0.3-1.2); CALCIUM LEVEL 9.4 MG/DL (8.3-10.6); GLOMERULAR FILTRATION RATE 84.6 (>49); POTASSIUM SERUM 4.4 MMOL/L (3.5-5.1); TOTAL PROTEIN 7.3 G/DL (5.7-8.2)
[2024-07-16 16:12] LABS: HEMOGLOBIN A1c 6.2 % (4.0-6.0)
== END ==
LOC: M PLALAB 12:52
PROVIDERS: ATTEND Nurse Practitioner Adult Health
DX: I10 Essential (primary) hypertension (principal); Z83.3 Family history of diabetes mellitus

== ENCOUNTER 2024-09-12 22:26 | Emergency (ER) | payer OTHER ==
[~2024-09-12] VITALS: Ht 177.8 cm; Wt 101.4 kg
[2024-09-13 07:34] VITALS: BP 150/77
[2024-09-13] MEDS: ACETAMINOPHEN 325 MG TAB PO ONE (07:36)
[2024-09-13] MEDS: ONDANSETRON 4MG ORAL DISINTEGRATING TAB PO ONE (07:46)
[2024-09-13 08:00] VITALS: TEMP 98.5; O2SAT 93
== END 2024-09-13 08:24 | disposition home or self-care (01) ==
LOC: M ED 22:26
DX: F10.129 Alcohol abuse with intoxication, unspecified (principal); S00.01XA Abrasion of scalp, initial encounter; W01.198A Fall on same level from slipping, tripping and stumbling with subsequent striking against other object, initial encounter; M47.812 Spondylosis without myelopathy or radiculopathy, cervical region; M50.30 Other cervical disc degeneration, unspecified cervical region; M25.78 Osteophyte, vertebrae; K21.9 Gastro-esophageal reflux disease without esophagitis; Y92.410 Unspecified street and highway as the place of occurrence of the external cause; Y93.89 Activity, other specified; Y99.9 Unspecified external cause status; Z79.899 Other long term (current) drug therapy; Z91.048 Other nonmedicinal substance allergy status